=== PATIENT | male | born 1940 | race Caucasian/White ===

== ENCOUNTER 2017-06-20 05:17 | Inpatient (IN) | payer MEDICARE, SELFPAY ==
[2017-06-13 09:50] VITALS: BP 146/71; PULSE 54; RESP 16; TEMP 36.7; O2SAT 100; BMI 27.6
--- NOTE | 2017-06-13 10:03 | SDCEKG_ITS ---
Test Reason : Blood Pressure : / mmHG Vent. Rate : 049 BPM Atrial Rate : 049 BPM P-R Int : 184 ms QRS Dur : 088 ms QT Int : 426 ms P-R-T Axes : 052 -23 006 degrees QTc Int : 384 ms Marked sinus bradycardia Abnormal ECG Confirmed by RADHA GIBBS, TREVOR ([id number]), metropolitan editor MEMO BAE ([id number]) on 06/14/2017 10:26:07 AM Referred By: Kehinde Thayer Confirmed By:TREVOR GARCIA MD
[2017-06-13 10:37] LABS: Hematocrit 38.4 % (40-54); Hemoglobin 12.9 g/dl (13.0-16.5); Mean Corp Hgb Conc 33.6 g/gl (32-36); Mean Corpuscular Volume 95.3 fL (80-94); Mean Platelet Vol. 10.6 fl (6.2-12.0); Platelet Count 211 K/mm3 (150-450); RBC Distribution Width CV 13.5 % (11.6-14.6); Red Blood Count 4.03 M/mm3 (4.6-6.2); Scan Indicated on CBC? Y/N NO; White Blood Count 4.3 K/mm3 (4.4-11.0)
[2017-06-13 11:02] LABS: Anion Gap 8 (5-15); BUN 26 mg/dL (7-18); BUN/Creat Ratio 24.5 RATIO (10-20); Calcium,Total 8.6 mg/dL (8.5-10.1); Chloride 104 mmol/L (98-107); Creatinine, Serum 1.06 mg/dL (0.70-1.30); EST Glomerular Filtration Rate 72 mL/min (>60); Est Glom Filt Rate - Afr Amer 88 mL/min (>60); Estimated Creatinine Clearance 51.19 ml/min; Glucose 95 mg/dL (70-110); Potassium 4.5 mmol/L (3.5-5.1); Sodium Level 139 mmol/L (136-145)
[2017-06-20] VITALS (23 sets, daily range): BP systolic 127–177; BP diastolic 47–81; PULSE 50–84; RESP 16–18; TEMP 36.2–37.1; O2SAT 94–100; BMI 27.6
--- NOTE | 2017-06-20 | PLAQ_PTH ---
PATIENT: MEG BAE LOC: MS2 U#:[id number] AGE/SX: 76/M ROOM: [facility] RE06/20/[address]: Dr. Kehinde Thayer MD : [id number] BED: 1 DIS: 06/21/2017 SPEC #: [id number] RECD: 06/20/17 14:39 STATUS: BETHEL REDebra #: [id number] ALESHIA: 06/20/17 00:[address]: Kehinde Thayer DEPT: SURGICAL PATHOLOGY RECD BY: Hugo Dobbins ENTERED: 06/20/17 14:39 SP TYPE: PLAQUE OTHR DR: Dr. Rudy Reed DO Tissues: PLAQUE Procedures: Decalcification bone/plaque Surgery Specimen Level III HEADER OPERATION: Carotid endarterectomy, right PRE-OP DIAGNOSIS: Carotid stenosis, right TISSUE SUBMITTED: Right carotid artery plaque MICROSCOPIC DIAGNOSIS Right carotid artery plaque, endarterectomy: Arteriosclerotic tissue with focal calcification (plaque). SJ:reno 06/23/17 GROSS DESCRIPTION Received in fixative is one container labeled with the patient's name and designated right carotid artery plaque. The specimen consists of a previously opened Y-shaped piece of pollard, indurated tissue measuring 2.5 cm in length and 0.6 cm in diameter. The specimen is totally submitted in one cassette after decalcification. / ARMANDO:reno 06/20/17 TC:5 CPT: 72664, 47067
--- NOTE | 2017-06-20 06:59 | OP.PCM_ITS ---
Problem List (1) Carotid stenosis, right Status: Acute Report of Operation Date of Procedure: 06/20/17 Pre-Operative Diagnosis: Asymptomatic right carotid stenosis Post-Operative Diagnosis: Same Surgery/Procedure Performed:: Right radial arterial line placement. Right carotid endarterectomy with patch angioplasty Description of Surgical Findings:: Timeout and informed consent was obtained. At the bedside Will test was performed. There was adequate ulnar flow. The right wrist was gently extended. It was prepped with Betadine. Ultrasound was used. 1% lidocaine was used as a local anesthetic. 1 cc was used. Under ultrasound guidance a 20- gauge aero Angiocath was advanced into the right radial artery. Seldinger wire technique was used to advance the catheter. It was secured to skin with interrupted 3-0 silk. He was connected to pressure tubing. OpSite dressing and Sugey wrap was applied. Patient tolerated procedure well without apparent complication. Excellent waveform was achieved. No apparent complications. Hand was viable at the completion. The patient was subsequently taken to the operating room for planned definitive right carotid surgery. 76-year-old gentleman was taken the operating room. He was placed supine on the table. He underwent general endotracheal intubation anesthesia. Ancef 2 g given intravenous preoperatively. The right neck was sterilely prepped and draped. 2 g of Ancef were given intravenously. An oblique incision was made along the anterior border of the sternocleidomastoid. Sharp dissection carried down his of symptoms had tissue. Platysma was incised. The sternocleidomastoid was reflected laterally. Dissection was formed deep. The carotid bulb was then the mid to lower neck. The external carotid was rotated anteriorly. Ansa cervicalis was overlying needed to be sacrificed to allow for rotation. The superior thyroid artery actually was anteriorly positioned. It was dissected free and rotated medially. The carotid bulb was dissected free the patient at this point received 8000 units of heparin. The vagus nerve identified and protected. Circumferential control was obtained of the common carotid external carotid and internal carotid. Dacron tapes were placed of the common carotid and internal carotid with a vessel loop at the external carotid. It is notable that the internal carotid was quite diminutive in caliber. After adequate circling time peripheral vascular clamps were placed on the common carotid internal carotid and external carotid. An 11 blade was used to make an arteriotomy which was extended with Blount scissors. Tight plaque was noted at the carotid bulb. Because the internal carotid was so diminutive and because pulse oximetry was good and there appear to be good backflow I elected not to attempt to place the shunt. An endarterectomy was performed the layer of the external elastic lamina. The plaque was sharply transected proximally. It was then feathered distally. A inversion enterectomy was carotid. Further plaque was carefully debrided free. The internal carotid plaque was further secured with a tacking suture of 7-0 Prolene. Then a 0.8 x 80 mm piece of bovine patch was shaped to form and a patch angioplasty created with a running 6 -0 Prolene. Prior to completion there is good retrograde flow from the internal carotid and external carotid good antegrade flow from the common carotid. Patch angioplasty was completed. Hemostasis was assured with several interrupted 7 oh [id number]-nm-lryee sutures. Good hemostasis was achieved. The patient then received 30 g of protamine for reversal. Hemostasis was intact. The platysma was approximated running 3-0 Vicryl. Skin inspected 1 septic or 5- 0 Vicryl. The jama-incisional areas anesthetized with 10 cc of 1% lidocaine. Steri-Strips Telfa tape dressings applied. Sponge instrument and needle counts were reported the surgeon to be correct. Blood loss was approximately 150 cc. He tolerated the procedure well was allowed to wake on the table. Complications and he was taken to the recovery room. Specimens plaque. Drains none. Blood loss 150 cc. Kehinde Thayer M.D., F.A.C.S. The patch was Vascu-Guard Ref. no. [id number] and with a PN #[id number] and lot number [id number] 05/23/1977 [id number]
--- NOTE | 2017-06-20 07:00 | DCINST_ITS ---
Discharge Diet: Light diet - advance as tolerated - if you have questions about your diet instructions, please talk to you doctor. Discharge Activity: May Not Drive - for 1 week or while taking narcotic pain medicine., May Not Shower May shower in (days): 3 - May shower on Tuesday Lifting Restrictions: 10 pounds Call your doctor if your incision/area has: Continuous Slow Oozing, Sudden Increased Bleeding, Increased Pain/ Swelling, Increased Redness, Foul Smelling Discharge Call your doctor if you observe: Fever of 101 or Higher Suture Line Care: Avoid Pulling/Pushing, Avoid Pinching/Bending Additional Dressing/Incision Instructions:: Change or remove dressing in 4 days. Leave steri-strips in place for 1 week. Allergies/Adverse Reactions: Allergies No Known Allergies Allergy (Verified 06/02/17 09:21) Medications to take at Discharge aspirin 81 mg chewable tablet 81 mg PO ONCE 05/24/17 rosuvastatin 10 mg tablet 10 mg PO ONCE 05/24/17 valsartan 160 mg tablet 160 mg PO QDAY 05/24/17 Amlodipine [Norvasc] 5 mg PO DAILY 06/13/17 Omeprazole [Prilosec] 20 mg PO PRN PRN 06/13/17 Hydrocodone Bitart/Apap 5-325 [[place] 5MG-325MG] 1 tablet PO Q6H PRN PRN 3 Days # 8 tablet 06/20/17 The following prescriptions were given: Hydrocodone Bitart/Apap 5-325 [[place] 5MG-325MG] 1 tablet PO Q6H PRN PRN 3 Days # 8 tablet PRN Reason: Pain Primary Care Physician: Rudy Reed DO [Primary Care Provider] - Please Follow Up With: Kehinde Thayer MD - [phone] When: Call to make an appointment to be seen in about 10 days.
[2017-06-20] MEDS: Cefazolin 2 GM in 0.9% Normal Saline 100 ML IV (07:03)
[2017-06-20] MEDS: Bupivacaine Mpf 0.5% 30 ML VIAL (08:55)
--- NOTE | 2017-06-20 09:54 | NURSING ---
NIPRIDE STARTED AT 0.3 MCG/KG/MIN PER DR DE JESUS. DR DE JESUS CHANGED NIPRIDE TUBING TO ACCOMODATE IVAC. ORIGINAL TUBING STARTED IN OR WAS NOT IVAC COMPATIBLE.
--- NOTE | 2017-06-20 09:59 | NURSING ---
TITRATED NIPRIDE UP TO 0.5MCG/KG/MIN AT THIS TIME.
--- NOTE | 2017-06-20 10:08 | NURSING ---
MAINTAINING AT NIPRIDE 0.5MCG/KG/MIN AT THIS TIME.
--- NOTE | 2017-06-20 10:25 | NURSING ---
NIPRIDE TITRATED DOWN TO 0.3MCG/KG/MIN AT THIS TIME. PT REMAINS AWAKE AND ALERT, DENIES QUESTIONS OR CONCERNS.
--- NOTE | 2017-06-20 12:06 | NURSING ---
DR Dakotah SERRATO CALLED FOR PT UPDATE, ORDERED HYDRALAZINE 5MG IV X 1 DOSE, THEN MAY DC ART LINE AND TRANSFER PT TO INPT ROOM.
[2017-06-20] MEDS: Cefazolin 1 GM/50 ML BAG IV ×2 (15:02→22:29)
[2017-06-20] MEDS: Acetaminophen 325 MG Tablet PO (15:03)
[2017-06-20] MEDS: Aspirin 81 MG TAB.CHEW PO (15:03)
--- NOTE | 2017-06-20 17:15 | PCM.PN.BLA ---
Progress Note Doing well, no complaints Neck: supple Neuro: intact Urinary retention treated with quick Will start flomax Quick out in a.m. Marlys
[2017-06-20] MEDS: Tamsulosin HCl 0.4 MG Capsule PO (18:55)
[2017-06-20] MEDS: Atorvastatin Calcium 20 MG Tablet PO (22:28)
[2017-06-21] VITALS: BP 137/70; PULSE 57; RESP 18; TEMP 36.7; O2SAT 98
[2017-06-21] MEDS: 0.9% NaCl Peripheral Flush Adult/Peds IV (04:12)
[2017-06-21 04:19] VITALS: BP 122/65; PULSE 58; RESP 16; TEMP 36.6; O2SAT 99
[2017-06-21] MEDS: Enoxaparin 40 MG/0.4 ML Syringe SC (05:19)
--- NOTE | 2017-06-21 06:06 | PCM.CAROT ---
General Carotid Note - Subjective Post-Op Day #: 1 - Objective Vital Signs Temp Pulse Resp BP Pulse Ox 97.9 F 58 L 16 122/65 H 99 06/21/17 04:19 06/21/17 04:19 06/21/17 04:19 06/21/17 04:19 06/21/17 04:19 Neck: Supple Neurological: Cranial nerves II-XII grossly intact Cardiovascular: Regular rate - Pt very alert, no pain, needs to void prior to discharge
[2017-06-21 10:03] VITALS: BP 130/65; PULSE 65; RESP 16; TEMP 36.7; O2SAT 98
[2017-06-21] MEDS: amLODIPine 5 MG Tablet PO (10:06)
--- NOTE | 2017-06-21 10:10 | NURSING ---
[facility] pharmacy called in regard to rejected escript for [place]. This RN spoke with Suri, pharmacist. She states that they do not have any record or documentation regarding medication. Harleen, community youth secretary was working on discharge paperwork for patient and noticed that script for [place] was rejected. This RN went in and spoke with patient and he states that he anticipates only needing Tylenol. This RN asked patient if he would be OK without prescription- patient stated that he would like to have just in case. This RN called Dr. Thayer's office at this time, spoke with Trinidad on nurses' line. Notified that we are in need of a script for patient's [place]. Notified that we are still waiting on a few other things but that the prescription was undeliverable to [facility] and reason written was controlled substance. This RN notified Trinidad that this RN cannot view actual order and cannot see any other reason that it was not delivered. GERRI Schaefer returned call at this time and states that patient has not needed much of anything while here- just tylenol on occasion. Notified to tell patient to use Tylenol and ice PRN for pain and to call office if pain is not controlled with current plan.
--- NOTE | 2017-06-21 12:03 | NURSING ---
Patient able to urinate per DL Dumont-and is requesting to be d/c'ed. Julia preparing to d/c patient at this time. This RN called Anjana Oliveros in her office and notified her of same. Understanding verbalized.
[2017-06-21 12:04] VITALS: BP 127/58; PULSE 68; RESP 16; TEMP 37.1; O2SAT 98
== END 2017-06-21 12:30 | disposition home or self-care (01) | DRG 39 ==
LOC: MS2 05:17
PROVIDERS: Admitting Provider Surgery; Family Provider Family Medicine; PCP Family Medicine; Visit Provider Surgery
PROC: 03CK0ZZ Extirpation of Matter from Right Internal Carotid Artery, Open Approach (ICD-10-PCS; CPT 35301; principal; 2017-06-20 06:55)
DX: I65.21 Occlusion and stenosis of right carotid artery (principal); I10 Essential (primary) hypertension; R33.9 Retention of urine, unspecified
CPT/HCPCS: 80048; 85027; 88304; 88311; 93005; 97802; J7040; J7120; A4216; J2405

== ENCOUNTER → 2017-07-19 08:41 | Outpatient (CLI) | payer MEDICARE, SELFPAY ==
--- NOTE | 2017-07-19 08:54 | CDUL_ITS ---
Reason For Study: Post op RT CEA Rt. Velocities/BP Prox CCA 87.4/14.1 cm/sec. Mid CCA 90.3/18.8 cm/sec. Dist CCA 94.4/19.9 cm/sec. Prox ICA 99.0/20.4 cm/sec. Mid ICA 107.0/30.9 cm/sec. Dist ICA 115.0/28.3 cm/sec. Rt. ICA/CCA = 1.3. Prox ECA 132.0/10.2 cm/sec. Rt. Vert. 55.0/9.0 cm/sec. Right Extracranial There is intimal thickening but no significant atherosclerotic plaque noted in the right common carotid artery. There is homogeneous, smooth atherosclerotic plaque noted in the right internal carotid artery. There is no significant atherosclerotic plaque noted in the right external carotid artery. Antegrade flow is noted in the right vertebral artery. Procedure Carotid Duplex [id number]. Exam performed in department. Interpretation Summary Post operative changes right carotid bulb and proximal internal carotid, widely patent, <50% stenosis. Minimal disease right external carotid. Patent and antegrade right vertebral. Ordering Physician: Kehinde Thayer Referring Physician: Kehinde Thayer Performed By: Ashely Diaz RVT
== END ==
PROVIDERS: Family Provider Family Medicine; PCP Family Medicine; Visit Provider Surgery
DX: I65.21 Occlusion and stenosis of right carotid artery (principal)
CPT/HCPCS: 93882

== ENCOUNTER → 2024-12-20 | Outpatient (CLI) | payer MEDICARE, SELFPAY ==
--- NOTE | 2024-12-20 15:45 | CT_ITS ---
PROCEDURE: CTA NECK W/WO CONTRAST 12/20/2024 REASON FOR EXAM: CAROTID ARTERY STENOSIS, BILATERAL TECHNIQUE: CTA NECK W/WO CONTRAST Multiplanar Sagittal and Coronal images were obtained. CONTRAST: Isovue 370 VOLUME: 93 mL One or more dose reduction techniques were used (e.g., Automated exposure control, adjustment of the mA and/or kV according to patient size, use of iterative reconstruction technique). RADIATION DOSE SUMMARY: CTDlvol: 33 mGy DLP: 469 mGycm COMPARISON: No FINDINGS: Left upper lobe linear scar/atelectasis. Clear right lung apex. Unremarkable superior mediastinum. Cervical spine degeneration. Posterior neck is unremarkable. Normal adenoids and tonsils. Normal epiglottis. Normal thyroid gland. No acute neck soft tissue pathology. Visible brain shows no abnormal enhancement. Mild calcified plaque in the thoracic arch. No acute findings. The vertebral arteries show a few calcified plaque. No high-grade stenosis, thrombosis, dissection, or aneurysm. The left vertebral artery is dominant. There is moderate stenosis at the origin. The right vertebral artery terminates in a PICA. Basilar artery is formed from the left vertebral artery. On the right, there is high-grade stenosis of the proximal extracranial ICA, greater than 95%, series 603 image 106. The extracranial ICA, and the visible intracranial ICA is relatively small in caliber, but patent. There are calcified plaques in the cavernous portion. No thrombosis, dissection, or aneurysm. The proximal external carotid artery is moderately stenosed, series 603, image 105. On the left, there is mild proximal ICA stenosis, less than 50%. There are calcified plaques in the cavernous portion of the intracranial ICA. No high-grade stenosis, thrombosis, dissection, or aneurysm. The right A1 segment is atretic. Posterior communicating arteries are patent. There is no acute intracranial arterial pathology. The visible dural venous sinuses are patent. CT/CTA Neck W/WO Contrast IMPRESSION: High-grade, greater than 95%, stenosis proximal extracranial right ICA. Moderate stenosis at the left vertebral artery origin. The right vertebral artery is diminutive and terminates in a PICA. Mild, approximately 50%, stenosis proximal extracranial left ICA. Reading Location: [place] [address]
== END | disposition home or self-care (01) ==
PROVIDERS: Referring Provider Surgery Vascular Surgery; Visit Provider Surgery Vascular Surgery
DX: I65.23 Occlusion and stenosis of bilateral carotid arteries (principal); I10 Essential (primary) hypertension; E78.00 Pure hypercholesterolemia, unspecified
CPT/HCPCS: 70498; Q9967